=== PATIENT | female | born 1965 | race Hispanic/Latino ===

== ENCOUNTER 2021-05-20 09:58 | Day surgery (SDC) | payer SELFPAY ==
[~2021-05-20] VITALS: Ht 152.4 cm; Wt 91.2 kg
[~2021-05-20 09:58] MED LIST: ASPIRIN 81 LOW81 MG PO; ATORVASTATIN CA80 MG PO; GLYBURIDE MICRON3 MG PO; LISINOP/HCTZ1 TA1 PO; MELOXICAM7.5 MG PO; METFORMIN HCL1000 MG PO; PRAVACHOL40 MG PO
[2021-05-20] MEDS ORDERED: CENTRUM ADULTS1 TAB PO (10:41)
[2021-05-20] MEDS ORDERED: PERCOCET 5/325M1 TAB PO (13:45)
[2021-05-20 15:46] VITALS: BP 160/86
== END 2021-05-20 15:35 | disposition home or self-care (01) | DRG 355 ==
LOC: ORM 09:58
PROVIDERS: ATTEND Surgery
PROC: 0WQF0ZZ Repair Abdominal Wall, Open Approach (ICD-10-PCS; principal; 2021-05-20)
DX: K42.9 Umbilical hernia without obstruction or gangrene (principal); I10 Essential (primary) hypertension; E11.9 Type 2 diabetes mellitus without complications; E78.5 Hyperlipidemia, unspecified; Z79.84 Long term (current) use of oral hypoglycemic drugs
CPT/HCPCS: J0131